=== PATIENT | female | born 1960 | race Caucasian/White ===

== ENCOUNTER 2020-04-03 14:04 | Emergency (ER) | payer SELFPAY ==
[~2020-04-03] VITALS: Ht 160 cm; Wt 77.1 kg
[2020-04-03 14:06] VITALS: BP 121/57; Ht 160 cm; Wt 77.1 kg
== END 2020-04-03 15:50 | disposition home or self-care (01) ==
LOC: ED 14:04
DX: R07.89 Other chest pain (principal); R06.02 Shortness of breath; R43.9 Unspecified disturbances of smell and taste; I10 Essential (primary) hypertension; Z20.828 Contact with and (suspected) exposure to other viral communicable diseases